=== PATIENT | male | born 1955 | race Caucasian/White ===

== ENCOUNTER 2017-11-19 16:22 | Inpatient (IN) | payer OTHER ==
[2017-11-19 16:56] LABS: ADD MAN DIFF? NO
[2017-11-19 17:00] LABS: WHITE BLOOD COUNT 9.4 10^3/ul (4.8-10.8)
[2017-11-19 17:00] LABS: BASOPHILS % 0.1 % (0.0-2.0); EOSINOPHILS # 0.4 10^3/ul (0.0-0.5); EOSINOPHILS % 3.7 % (0.0-7.0); HEMATOCRIT 32.4 % (42.0-52.0); HEMOGLOBIN 10.3 g/dl (14.0-18.0); LYMPHOCYTES # 1.6 10^3/ul (0.8-2.9); MEAN CORPUSCULAR HEMOGLOBIN 26.6 pg (29.0-33.0); MEAN CORPUSCULAR HGB CONC 31.8 g/dl (32.0-37.0); MEAN CORPUSCULAR VOLUME 83.7 fl (82.0-101.0); MEAN PLATELET VOLUME 8.8 fl (7.4-10.4); MONOCYTE # 0.6 10^3/ul (0.3-0.9); MONOCYTES % 6.3 % (0.0-11.0); NEUTROPHIL # 6.8 10^3/ul (1.6-7.5); NEUTROPHILS % 72.2 % (39.0-77.0); PLATELET COUNT 273 10^3/UL (140-415); RED BLOOD COUNT 3.87 10^6/ul (4.70-6.10)
[2017-11-19] MEDS: CEFEPIME 2GM/50 ML (PMX) 50 ML IVPB (17:14)
[2017-11-19] MEDS: SODIUM CHLORIDE 0.9% 1L BAG IV* (17:14)
[2017-11-19 17:17] LABS: INR 0.87; PROTIME 11.9 Sec (11.9-14.9); PT RATIO 0.9
[2017-11-19 17:19] LABS: PARTIAL THROMBOPLASTIN TIME 37.9 Sec (25.0-35.0)
[2017-11-19 17:25] LABS: ADD UMIC YES; UR AMORPHOUS CRYSTAL MANY /HPF (NONE SEEN); UR ASCORBIC ACID 40 mg/dL (NEGATIVE); UR BACTERIA FEW /HPF (NONE SEEN); UR BILIRUBIN (Dip) NEGATIVE (NEGATIVE); UR BLOOD (Dip) 3+ mg/dL (NEGATIVE); UR CLARITY TURBID (CLEAR); UR COLOR YELLOW (YELLOW); UR GLUCOSE (Dip) NEGATIVE (NEGATIVE); UR KETONES (Dip) NEGATIVE (NEGATIVE); UR LEUKOCYTE ESTERASE (Dip) NEGATIVE Leu/ul (NEGATIVE); UR MUCUS FEW /HPF (NONE SEEN); UR NITRITE (Dip) NEGATIVE (NEGATIVE); UR RBC > 182 /HPF (0-5); UR SPECIFIC GRAVITY (Dip) 1.013 (1.003-1.030); UR TOTAL PROTEIN (Dip) 1+ mg/dl (NEGATIVE); UR UROBILINOGEN (Dip) NEGATIVE (NEGATIVE); UR WBC 29 /HPF (0-5)
[2017-11-19 17:26] LABS: LACTIC ACID 1.5 mmol/L (0.5-2.0)
[2017-11-19 17:28] LABS: ALANINE AMINOTRANSFERASE 32 IU/L (13-69); ALBUMIN 3.3 g/dl (3.3-4.9); ALBUMIN/GLOBULIN RATIO 0.89; ALKALINE PHOSPHATASE 73 IU/L (42-121); ANION GAP 10 (8-16); ASPARTATE AMINO TRANSFERASE 26 IU/L (15-46); BILIRUBIN,INDIRECT 0.4 mg/dl (0-1.1); BILIRUBIN,TOTAL 0.4 mg/dl (0.2-1.3); BLOOD UREA NITROGEN 18 mg/dl (7-20); CALCIUM 9.2 mg/dl (8.4-10.2); CARBON DIOXIDE 35 mmol/L (21-31); CHLORIDE 93 mmol/L (97-110); CREATININE 0.53 mg/dl (0.61-1.24); GLUCOSE 132 mg/dl (70-220); SODIUM 134 mmol/L (135-144)
[2017-11-19 17:38] LABS: TROPONIN-I < 0.010 ng/ml (0.000-0.120)
[2017-11-19] MEDS: morphine 4 MG/ML VIAL IV (17:52)
[2017-11-19] MEDS ORDERED: NACL 0.9% 3 ML SYG IV (18:00)
[2017-11-19] MEDS ORDERED: VANCOMYCIN IV PER PHARMACY XX (18:00)
[2017-11-19] MEDS: morphine 2 MG INJ IV (19:33)
[2017-11-19] MEDS: VANCOMYCIN 1 GM (PMX) 250 ML IVPB (19:33)
[2017-11-19] MEDS: ONDANSETRON 4 MG INJ IV (19:33)
[2017-11-19] MEDS: HYDROCODONE/APAP (5/325) TAB PO (19:51)
[2017-11-19] MEDS: DOCUSATE SODIUM 10 MG/ML (10ML CUP) GTB (19:59)
[2017-11-19 20:39] LABS: LACTIC ACID 0.8 mmol/L (0.5-2.0)
[2017-11-19] MEDS: BUDESONIDE (NEB) 0.5MG/2ML AMP HHN (20:43)
[2017-11-19] MEDS: ALBUTEROL/IPRATROPIUM (NEB) 3 ML AMP HHN (20:43)
[2017-11-19] MEDS: ACETAMINOPHEN 325 MG TAB PO (21:05)
[2017-11-19] MEDS: FAMOTIDINE 20 MG INJ IV (21:09)
[2017-11-19] MEDS: SOD CHLORIDE 0.9% 1,000 ML IV (21:09)
[2017-11-19] MEDS ORDERED: HEPARIN 5,000 UNIT/0.5 ML VIAL SC (22:00)
[2017-11-20 00:17] LABS: LACTIC ACID 1.2 mmol/L (0.5-2.0)
[2017-11-20] MEDS: LORAZEPAM 0.5 MG TAB PO ×2 (00:31→21:34)
[2017-11-20] MEDS: HYDROCODONE/APAP (5/325) TAB PO ×3 (01:40→21:35)
[2017-11-20] MEDS: VANCOMYCIN 1 GM 250 ML IVPB ×2 (05:15→16:42)
[2017-11-20 05:46] LABS: ADD MAN DIFF? NO
[2017-11-20 05:58] LABS: BASOPHILS % 0.2 % (0.0-2.0); EOSINOPHILS # 0.4 10^3/ul (0.0-0.5); EOSINOPHILS % 7.1 % (0.0-7.0); HEMATOCRIT 29.2 % (42.0-52.0); HEMOGLOBIN 9.3 g/dl (14.0-18.0); LYMPHOCYTES # 0.9 10^3/ul (0.8-2.9); LYMPHOCYTES % 17.7 % (15.0-51.0); MEAN CORPUSCULAR HEMOGLOBIN 26.9 pg (29.0-33.0); MEAN CORPUSCULAR HGB CONC 31.8 g/dl (32.0-37.0); MEAN CORPUSCULAR VOLUME 84.4 fl (82.0-101.0); MEAN PLATELET VOLUME 9.2 fl (7.4-10.4); MONOCYTE # 0.5 10^3/ul (0.3-0.9); MONOCYTES % 9.6 % (0.0-11.0); NEUTROPHIL # 3.2 10^3/ul (1.6-7.5); NEUTROPHILS % 64.8 % (39.0-77.0); PLATELET COUNT 252 10^3/UL (140-415); RED BLOOD COUNT 3.46 10^6/ul (4.70-6.10); RED CELL DISTRIBUTION WIDTH 15.9 % (11.5-14.5)
[2017-11-20 05:58] LABS: WHITE BLOOD COUNT 4.9 10^3/ul (4.8-10.8)
[2017-11-20] MEDS: PIPER-TAZO 3.375 GM IV (PMX) 100 ML IVPB ×4 (06:03→23:33)
[2017-11-20 06:42] LABS: ALANINE AMINOTRANSFERASE 32 IU/L (13-69); ALBUMIN 2.9 g/dl (3.3-4.9); ALKALINE PHOSPHATASE 72 IU/L (42-121); ANION GAP 9 (8-16); ASPARTATE AMINO TRANSFERASE 30 IU/L (15-46); BILIRUBIN,INDIRECT 0.3 mg/dl (0-1.1); BILIRUBIN,TOTAL 0.3 mg/dl (0.2-1.3); BLOOD UREA NITROGEN 14 mg/dl (7-20); CALCIUM 8.8 mg/dl (8.4-10.2); CARBON DIOXIDE 31 mmol/L (21-31); CHLORIDE 100 mmol/L (97-110); CHOL/HDL RATIO 4.8 RATIO; CHOLESTEROL 83 mg/dl (100-200); CREATININE 0.44 mg/dl (0.61-1.24); GLUCOSE 140 mg/dl (70-220); HDL CHOLESTEROL 17 mg/dl (30-78); LDL CHOLESTEROL,CALCULATED 47 mg/dl; POTASSIUM 4.4 mmol/L (3.5-5.1); SODIUM 136 mmol/L (135-144); TOTAL PROTEIN 6.1 g/dl (6.1-8.1); TRIGLYCERIDES 96 mg/dl (0-149)
[2017-11-20] MEDS: FAMOTIDINE 20 MG INJ IV ×2 (09:04→21:34)
[2017-11-20] MEDS: DOCUSATE SODIUM 10 MG/ML (10ML CUP) GTB ×2 (09:04→22:01)
[2017-11-20] MEDS: BUDESONIDE (NEB) 0.5MG/2ML AMP HHN ×2 (09:25→21:07)
[2017-11-20] MEDS: ALBUTEROL/IPRATROPIUM (NEB) 3 ML AMP HHN ×3 (09:26→21:07)
[2017-11-20] MEDS: SOD CHLORIDE 0.9% 1,000 ML IV (13:45)
[2017-11-20] MEDS: morphine 2 MG INJ IV (15:26)
[2017-11-20] MEDS: DOCUSATE SODIUM 100 MG CAP PO (21:34)
[2017-11-20] MEDS: MAGNESIUM HYDROXIDE 30ML CUP PO (21:34)
[2017-11-21 04:17] LABS: WHITE BLOOD COUNT 5.2 10^3/ul (4.8-10.8)
[2017-11-21 04:17] LABS: ADD MAN DIFF? NO; BASOPHILS % 0.2 % (0.0-2.0); EOSINOPHILS # 0.3 10^3/ul (0.0-0.5); HEMATOCRIT 29.5 % (42.0-52.0); HEMOGLOBIN 9.5 g/dl (14.0-18.0); LYMPHOCYTES # 1.7 10^3/ul (0.8-2.9); LYMPHOCYTES % 32.4 % (15.0-51.0); MEAN CORPUSCULAR HEMOGLOBIN 27.4 pg (29.0-33.0); MEAN CORPUSCULAR HGB CONC 32.2 g/dl (32.0-37.0); MEAN PLATELET VOLUME 8.5 fl (7.4-10.4); MONOCYTE # 0.5 10^3/ul (0.3-0.9); MONOCYTES % 10.1 % (0.0-11.0); NEUTROPHIL # 2.6 10^3/ul (1.6-7.5); NEUTROPHILS % 50.9 % (39.0-77.0); PLATELET COUNT 281 10^3/UL (140-415); RED BLOOD COUNT 3.47 10^6/ul (4.70-6.10); RED CELL DISTRIBUTION WIDTH 15.5 % (11.5-14.5)
[2017-11-21 04:36] LABS: ANION GAP 11 (8-16); BLOOD UREA NITROGEN 13 mg/dl (7-20); CALCIUM 8.9 mg/dl (8.4-10.2); CARBON DIOXIDE 29 mmol/L (21-31); CHLORIDE 100 mmol/L (97-110); CREATININE 0.54 mg/dl (0.61-1.24); GLUCOSE 140 mg/dl (70-220); POTASSIUM 4.2 mmol/L (3.5-5.1); SODIUM 136 mmol/L (135-144)
[2017-11-21 04:48] LABS: VANCOMYCIN,TROUGH 8.2 ug/ml (10.0-20.0)
[2017-11-21] MEDS: PIPER-TAZO 3.375 GM IV (PMX) 100 ML IVPB ×4 (05:02→23:51)
[2017-11-21] MEDS: VANCOMYCIN 1 GM 250 ML IVPB (05:02)
[2017-11-21] MEDS: LORAZEPAM 0.5 MG TAB PO ×2 (05:31→21:26)
[2017-11-21] MEDS: HYDROCODONE/APAP (5/325) TAB PO ×2 (05:31→17:29)
[2017-11-21] MEDS: ALBUTEROL/IPRATROPIUM (NEB) 3 ML AMP HHN ×3 (07:40→20:15)
[2017-11-21] MEDS: DOCUSATE SODIUM 10 MG/ML (10ML CUP) GTB ×2 (08:21→20:05)
[2017-11-21] MEDS: FAMOTIDINE 20 MG INJ IV ×2 (08:21→20:06)
[2017-11-21] MEDS: ENOXAPARIN 30 MG/0.3 ML SYG SC (08:26)
[2017-11-21] MEDS: SOD CHLORIDE 0.9% 1,000 ML IV ×2 (09:13→11:13)
[2017-11-21] MEDS: BUDESONIDE (NEB) 0.5MG/2ML AMP HHN ×2 (09:22→20:15)
[2017-11-21] MEDS: VANCOMYCIN 1.5 GM in SOD CHLORIDE 0.9% 250 ML IVPB (18:43)
[2017-11-22] MEDS: HYDROCODONE/APAP (5/325) TAB PO ×4 (02:46→23:06)
[2017-11-22] MEDS: PIPER-TAZO 3.375 GM IV (PMX) 100 ML IVPB ×4 (05:06→23:03)
[2017-11-22] MEDS: LORAZEPAM 0.5 MG TAB PO ×2 (05:06→15:18)
[2017-11-22] MEDS: VANCOMYCIN 1.5 GM in SOD CHLORIDE 0.9% 250 ML IVPB ×2 (05:06→16:18)
[2017-11-22] MEDS: SOD CHLORIDE 0.9% 1,000 ML IV (05:10)
[2017-11-22 07:34] LABS: ADD MAN DIFF? NO
[2017-11-22] MEDS: ALBUTEROL/IPRATROPIUM (NEB) 3 ML AMP HHN ×3 (07:43→19:55)
[2017-11-22 07:44] LABS: BASOPHILS % 0.4 % (0.0-2.0); EOSINOPHILS # 0.3 10^3/ul (0.0-0.5); EOSINOPHILS % 3.6 % (0.0-7.0); HEMATOCRIT 31.5 % (42.0-52.0); LYMPHOCYTES # 2.1 10^3/ul (0.8-2.9); LYMPHOCYTES % 30.2 % (15.0-51.0); MEAN CORPUSCULAR HGB CONC 31.7 g/dl (32.0-37.0); MEAN CORPUSCULAR VOLUME 84.9 fl (82.0-101.0); MONOCYTE # 0.6 10^3/ul (0.3-0.9); MONOCYTES % 8.8 % (0.0-11.0); NEUTROPHIL # 3.9 10^3/ul (1.6-7.5); NEUTROPHILS % 54.9 % (39.0-77.0); PLATELET COUNT 298 10^3/UL (140-415); RED BLOOD COUNT 3.71 10^6/ul (4.70-6.10); RED CELL DISTRIBUTION WIDTH 15.1 % (11.5-14.5)
[2017-11-22 07:59] LABS: ANION GAP 11 (8-16); BLOOD UREA NITROGEN 14 mg/dl (7-20); CALCIUM 9.1 mg/dl (8.4-10.2); CARBON DIOXIDE 29 mmol/L (21-31); CHLORIDE 102 mmol/L (97-110); CREATININE 0.52 mg/dl (0.61-1.24); GLUCOSE 132 mg/dl (70-220); POTASSIUM 3.9 mmol/L (3.5-5.1); SODIUM 138 mmol/L (135-144)
[2017-11-22] MEDS: FAMOTIDINE 20 MG INJ IV ×2 (08:46→20:50)
[2017-11-22] MEDS: DOCUSATE SODIUM 10 MG/ML (10ML CUP) GTB ×2 (08:46→20:50)
[2017-11-22] MEDS: ENOXAPARIN 30 MG/0.3 ML SYG SC (08:49)
[2017-11-22] MEDS: BUDESONIDE (NEB) 0.5MG/2ML AMP HHN ×2 (09:35→19:56)
[2017-11-22] MEDS: HYDROCHLOROTHIAZIDE 25 MG TAB PO (18:12)
[2017-11-22 18:32] LABS: ADD UMIC NO; UR ASCORBIC ACID 20 mg/dL (NEGATIVE); UR BILIRUBIN (Dip) NEGATIVE (NEGATIVE); UR BLOOD (Dip) NEGATIVE (NEGATIVE); UR CLARITY CLEAR (CLEAR); UR COLOR STRAW (YELLOW); UR GLUCOSE (Dip) NEGATIVE (NEGATIVE); UR KETONES (Dip) NEGATIVE (NEGATIVE); UR LEUKOCYTE ESTERASE (Dip) NEGATIVE Leu/ul (NEGATIVE); UR NITRITE (Dip) NEGATIVE (NEGATIVE); UR SPECIFIC GRAVITY (Dip) 1.015 (1.003-1.030); UR TOTAL PROTEIN (Dip) NEGATIVE (NEGATIVE); UR UROBILINOGEN (Dip) NEGATIVE (NEGATIVE)
[2017-11-22] MEDS: MUPIROCIN 2% 22 GM OINT TOP (23:02)
[2017-11-22] MEDS: TOBRAMYCIN/0.25NS 300 MG/5 ML INHAL NEB (23:22)
[2017-11-23] MEDS: SOD CHLORIDE 0.9% 1,000 ML IV ×4 (00:15→20:47)
[2017-11-23] MEDS: ACETAMINOPHEN 325 MG TAB PO (03:50)
[2017-11-23] MEDS: LORAZEPAM 0.5 MG TAB PO (03:50)
[2017-11-23 04:27] LABS: ADD MAN DIFF? NO
[2017-11-23 04:31] LABS: WHITE BLOOD COUNT 6.9 10^3/ul (4.8-10.8)
[2017-11-23 04:31] LABS: BASOPHILS % 0.3 % (0.0-2.0); EOSINOPHILS # 0.3 10^3/ul (0.0-0.5); EOSINOPHILS % 4.2 % (0.0-7.0); HEMATOCRIT 30.7 % (42.0-52.0); HEMOGLOBIN 9.9 g/dl (14.0-18.0); LYMPHOCYTES # 2.3 10^3/ul (0.8-2.9); LYMPHOCYTES % 33.7 % (15.0-51.0); MEAN CORPUSCULAR HEMOGLOBIN 26.9 pg (29.0-33.0); MEAN CORPUSCULAR HGB CONC 32.2 g/dl (32.0-37.0); MEAN CORPUSCULAR VOLUME 83.4 fl (82.0-101.0); MEAN PLATELET VOLUME 8.8 fl (7.4-10.4); MONOCYTE # 0.7 10^3/ul (0.3-0.9); MONOCYTES % 10.4 % (0.0-11.0); NEUTROPHIL # 3.3 10^3/ul (1.6-7.5); NEUTROPHILS % 47.9 % (39.0-77.0); PLATELET COUNT 307 10^3/UL (140-415); RED BLOOD COUNT 3.68 10^6/ul (4.70-6.10); RED CELL DISTRIBUTION WIDTH 15.3 % (11.5-14.5)
[2017-11-23 04:59] LABS: ANION GAP 11 (8-16); BLOOD UREA NITROGEN 15 mg/dl (7-20); CALCIUM 9.3 mg/dl (8.4-10.2); CARBON DIOXIDE 29 mmol/L (21-31); CHLORIDE 100 mmol/L (97-110); CREATININE 0.55 mg/dl (0.61-1.24); GLUCOSE 132 mg/dl (70-220); POTASSIUM 4.1 mmol/L (3.5-5.1); SODIUM 136 mmol/L (135-144)
[2017-11-23 05:05] LABS: VANCOMYCIN,TROUGH 19.5 ug/ml (10.0-20.0)
[2017-11-23] MEDS: PIPER-TAZO 3.375 GM IV (PMX) 100 ML IVPB ×4 (05:16→23:19)
[2017-11-23] MEDS: ALBUTEROL/IPRATROPIUM (NEB) 3 ML AMP HHN ×3 (08:15→20:27)
[2017-11-23] MEDS: TOBRAMYCIN/0.25NS 300 MG/5 ML INHAL NEB ×2 (08:15→20:00)
[2017-11-23] MEDS: BUDESONIDE (NEB) 0.5MG/2ML AMP HHN ×2 (08:15→20:27)
[2017-11-23] MEDS: DOCUSATE SODIUM 10 MG/ML (10ML CUP) GTB ×2 (09:58→20:46)
[2017-11-23] MEDS: VANCOMYCIN 1.25 GM in SOD CHLORIDE 0.9% 250 ML IVPB ×2 (09:58→19:40)
[2017-11-23] MEDS: HYDROCHLOROTHIAZIDE 25 MG TAB PO (09:59)
[2017-11-23] MEDS: HYDROCODONE/APAP (5/325) TAB PO ×3 (09:59→23:18)
[2017-11-23] MEDS: MUPIROCIN 2% 22 GM OINT TOP ×2 (10:00→20:46)
[2017-11-23] MEDS: FAMOTIDINE 20 MG INJ IV ×2 (10:00→20:46)
[2017-11-23] MEDS: ENOXAPARIN 30 MG/0.3 ML SYG SC (10:19)
[2017-11-24] MEDS: LORAZEPAM 0.5 MG TAB PO ×2 (02:39→22:59)
[2017-11-24] MEDS: ACETAMINOPHEN 325 MG TAB PO ×2 (02:39→08:40)
[2017-11-24] MEDS: PIPER-TAZO 3.375 GM IV (PMX) 100 ML IVPB ×4 (05:23→22:59)
[2017-11-24] MEDS: HYDROCODONE/APAP (5/325) TAB PO ×3 (06:02→20:52)
[2017-11-24] MEDS: LISINOPRIL 10 MG TAB PO (08:21)
[2017-11-24] MEDS: VANCOMYCIN 1.25 GM in SOD CHLORIDE 0.9% 250 ML IVPB ×2 (08:21→20:52)
[2017-11-24] MEDS: HYDROCHLOROTHIAZIDE 25 MG TAB PO (08:21)
[2017-11-24] MEDS: DOCUSATE SODIUM 10 MG/ML (10ML CUP) GTB ×2 (08:21→20:52)
[2017-11-24] MEDS: FAMOTIDINE 20 MG INJ IV ×2 (08:22→20:52)
[2017-11-24] MEDS: MUPIROCIN 2% 22 GM OINT TOP ×2 (08:22→20:52)
[2017-11-24] MEDS: ENOXAPARIN 30 MG/0.3 ML SYG SC (08:36)
[2017-11-24] MEDS: ALBUTEROL/IPRATROPIUM (NEB) 3 ML AMP HHN ×3 (08:57→20:32)
[2017-11-24] MEDS: BUDESONIDE (NEB) 0.5MG/2ML AMP HHN ×2 (08:57→20:32)
[2017-11-24] MEDS: TOBRAMYCIN/0.25NS 300 MG/5 ML INHAL NEB ×2 (08:57→20:34)
[2017-11-24 09:44] LABS: ANION GAP 11 (8-16); BLOOD UREA NITROGEN 16 mg/dl (7-20); CALCIUM 9.1 mg/dl (8.4-10.2); CARBON DIOXIDE 28 mmol/L (21-31); CHLORIDE 101 mmol/L (97-110); CREATININE 0.57 mg/dl (0.61-1.24); GLUCOSE 133 mg/dl (70-220); POTASSIUM 4.1 mmol/L (3.5-5.1); SODIUM 136 mmol/L (135-144)
[2017-11-24 19:50] LABS: VANCOMYCIN,TROUGH 16.4 ug/ml (10.0-20.0)
[2017-11-25] MEDS: HYDROCODONE/APAP (5/325) TAB PO ×3 (03:09→18:14)
[2017-11-25] MEDS: PIPER-TAZO 3.375 GM IV (PMX) 100 ML IVPB ×3 (06:12→17:54)
[2017-11-25] MEDS: ACETAMINOPHEN 325 MG TAB PO (06:26)
[2017-11-25 06:35] LABS: ADD MAN DIFF? NO
[2017-11-25 06:41] LABS: WHITE BLOOD COUNT 7.8 10^3/ul (4.8-10.8)
[2017-11-25 06:41] LABS: BASOPHILS % 0.3 % (0.0-2.0); EOSINOPHILS # 0.2 10^3/ul (0.0-0.5); EOSINOPHILS % 2.7 % (0.0-7.0); HEMATOCRIT 31.3 % (42.0-52.0); HEMOGLOBIN 10.2 g/dl (14.0-18.0); LYMPHOCYTES # 2.4 10^3/ul (0.8-2.9); LYMPHOCYTES % 30.1 % (15.0-51.0); MEAN CORPUSCULAR HEMOGLOBIN 27.2 pg (29.0-33.0); MEAN CORPUSCULAR HGB CONC 32.6 g/dl (32.0-37.0); MEAN CORPUSCULAR VOLUME 83.5 fl (82.0-101.0); MONOCYTE # 0.6 10^3/ul (0.3-0.9); MONOCYTES % 8.2 % (0.0-11.0); NEUTROPHIL # 4.5 10^3/ul (1.6-7.5); NEUTROPHILS % 57.2 % (39.0-77.0); PLATELET COUNT 347 10^3/UL (140-415); RED BLOOD COUNT 3.75 10^6/ul (4.70-6.10); RED CELL DISTRIBUTION WIDTH 15.4 % (11.5-14.5)
[2017-11-25 07:04] LABS: INR 0.93; PROTIME 12.6 Sec (11.9-14.9)
[2017-11-25 07:05] LABS: PARTIAL THROMBOPLASTIN TIME 35.4 Sec (25.0-35.0)
[2017-11-25 07:21] LABS: ALANINE AMINOTRANSFERASE 28 IU/L (13-69); ALBUMIN 3.2 g/dl (3.3-4.9); ALBUMIN/GLOBULIN RATIO 0.91; ALKALINE PHOSPHATASE 58 IU/L (42-121); ANION GAP 11 (8-16); ASPARTATE AMINO TRANSFERASE 19 IU/L (15-46); BILIRUBIN,INDIRECT 0.2 mg/dl (0-1.1); BILIRUBIN,TOTAL 0.2 mg/dl (0.2-1.3); BLOOD UREA NITROGEN 17 mg/dl (7-20); CALCIUM 9.3 mg/dl (8.4-10.2); CARBON DIOXIDE 29 mmol/L (21-31); CHLORIDE 100 mmol/L (97-110); CREATININE 0.59 mg/dl (0.61-1.24); GLUCOSE 131 mg/dl (70-220); POTASSIUM 4.1 mmol/L (3.5-5.1); SODIUM 136 mmol/L (135-144); TOTAL PROTEIN 6.7 g/dl (6.1-8.1)
[2017-11-25] MEDS: ALBUTEROL/IPRATROPIUM (NEB) 3 ML AMP HHN ×3 (08:05→20:25)
[2017-11-25] MEDS: VANCOMYCIN 1.25 GM in SOD CHLORIDE 0.9% 250 ML IVPB (08:41)
[2017-11-25] MEDS: BUDESONIDE (NEB) 0.5MG/2ML AMP HHN ×2 (09:46→20:34)
[2017-11-25] MEDS: TOBRAMYCIN/0.25NS 300 MG/5 ML INHAL NEB ×2 (09:58→20:43)
[2017-11-25] MEDS: LISINOPRIL 5 MG TAB PO (10:29)
[2017-11-25] MEDS: FAMOTIDINE 20 MG INJ IV ×2 (10:29→21:44)
[2017-11-25] MEDS: DOCUSATE SODIUM 10 MG/ML (10ML CUP) GTB ×2 (10:29→21:44)
[2017-11-25] MEDS: HYDROCHLOROTHIAZIDE 25 MG TAB PO (10:29)
[2017-11-25] MEDS: MUPIROCIN 2% 22 GM OINT TOP ×2 (10:30→21:45)
[2017-11-25] MEDS: ENOXAPARIN 30 MG/0.3 ML SYG SC (10:54)
[2017-11-25] MEDS: LORAZEPAM 0.5 MG TAB PO ×2 (12:47→21:57)
[2017-11-25] MEDS: VANCOMYCIN 1 GM 250 ML IVPB (21:45)
[2017-11-26] MEDS: PIPER-TAZO 3.375 GM IV (PMX) 100 ML IVPB ×5 (00:41→23:39)
[2017-11-26] MEDS: morphine LIQ (10 MG/5 ML) CUP PO ×2 (01:08→01:26)
[2017-11-26] MEDS: HYDROCODONE/APAP (5/325) TAB PO ×4 (01:27→23:40)
[2017-11-26] MEDS: ALBUTEROL/IPRATROPIUM (NEB) 3 ML AMP HHN ×4 (07:52→23:54)
[2017-11-26 08:43] LABS: ADD MAN DIFF? NO
[2017-11-26] MEDS: VANCOMYCIN 1 GM 250 ML IVPB ×2 (08:43→21:47)
[2017-11-26 08:55] LABS: WHITE BLOOD COUNT 8.4 10^3/ul (4.8-10.8)
[2017-11-26 08:55] LABS: BASOPHILS % 0.1 % (0.0-2.0); EOSINOPHILS # 0.2 10^3/ul (0.0-0.5); EOSINOPHILS % 2.5 % (0.0-7.0); HEMATOCRIT 32.1 % (42.0-52.0); HEMOGLOBIN 10.3 g/dl (14.0-18.0); LYMPHOCYTES # 2.7 10^3/ul (0.8-2.9); LYMPHOCYTES % 31.9 % (15.0-51.0); MEAN CORPUSCULAR HEMOGLOBIN 26.8 pg (29.0-33.0); MEAN CORPUSCULAR HGB CONC 32.1 g/dl (32.0-37.0); MEAN CORPUSCULAR VOLUME 83.6 fl (82.0-101.0); MONOCYTE # 0.7 10^3/ul (0.3-0.9); MONOCYTES % 7.7 % (0.0-11.0); NEUTROPHIL # 4.8 10^3/ul (1.6-7.5); NEUTROPHILS % 56.5 % (39.0-77.0); PLATELET COUNT 340 10^3/UL (140-415); RED BLOOD COUNT 3.84 10^6/ul (4.70-6.10); RED CELL DISTRIBUTION WIDTH 15.9 % (11.5-14.5)
[2017-11-26] MEDS: TOBRAMYCIN/0.25NS 300 MG/5 ML INHAL NEB ×2 (09:00→19:35)
[2017-11-26] MEDS: MUPIROCIN 2% 22 GM OINT TOP ×2 (09:39→21:48)
[2017-11-26] MEDS: FAMOTIDINE 20 MG INJ IV ×2 (09:39→21:48)
[2017-11-26] MEDS: HYDROCHLOROTHIAZIDE 25 MG TAB PO (09:39)
[2017-11-26] MEDS: LISINOPRIL 5 MG TAB PO (09:39)
[2017-11-26] MEDS: DOCUSATE SODIUM 10 MG/ML (10ML CUP) GTB ×2 (09:39→21:47)
[2017-11-26] MEDS: ENOXAPARIN 30 MG/0.3 ML SYG SC (09:44)
[2017-11-26] MEDS: BUDESONIDE (NEB) 0.5MG/2ML AMP HHN ×2 (09:55→19:35)
[2017-11-26 10:14] LABS: ANION GAP 13 (8-16); BLOOD UREA NITROGEN 19 mg/dl (7-20); CALCIUM 9.2 mg/dl (8.4-10.2); CARBON DIOXIDE 28 mmol/L (21-31); CHLORIDE 100 mmol/L (97-110); CREATININE 0.66 mg/dl (0.61-1.24); GLUCOSE 125 mg/dl (70-220); MAGNESIUM 2.3 mg/dl (1.7-2.5); POTASSIUM 4.1 mmol/L (3.5-5.1); SODIUM 137 mmol/L (135-144)
[2017-11-26] MEDS: ACETAMINOPHEN 325 MG TAB PO (12:49)
[2017-11-26] MEDS: LORAZEPAM 0.5 MG TAB PO (12:54)
[2017-11-27] MEDS: ALBUTEROL/IPRATROPIUM (NEB) 3 ML AMP HHN ×4 (06:03→20:53)
[2017-11-27] MEDS: PIPER-TAZO 3.375 GM IV (PMX) 100 ML IVPB ×3 (06:25→18:02)
[2017-11-27 07:29] LABS: ADD MAN DIFF? NO
[2017-11-27 07:36] LABS: WHITE BLOOD COUNT 6.9 10^3/ul (4.8-10.8)
[2017-11-27 07:36] LABS: BASOPHILS % 0.3 % (0.0-2.0); EOSINOPHILS # 0.3 10^3/ul (0.0-0.5); EOSINOPHILS % 3.6 % (0.0-7.0); HEMATOCRIT 31.9 % (42.0-52.0); HEMOGLOBIN 10.4 g/dl (14.0-18.0); LYMPHOCYTES # 2.1 10^3/ul (0.8-2.9); LYMPHOCYTES % 30.7 % (15.0-51.0); MEAN CORPUSCULAR HEMOGLOBIN 27.2 pg (29.0-33.0); MEAN CORPUSCULAR HGB CONC 32.6 g/dl (32.0-37.0); MEAN CORPUSCULAR VOLUME 83.3 fl (82.0-101.0); MONOCYTE # 0.5 10^3/ul (0.3-0.9); MONOCYTES % 7.7 % (0.0-11.0); NEUTROPHIL # 3.9 10^3/ul (1.6-7.5); PLATELET COUNT 332 10^3/UL (140-415); RED BLOOD COUNT 3.83 10^6/ul (4.70-6.10); RED CELL DISTRIBUTION WIDTH 15.8 % (11.5-14.5)
[2017-11-27 07:57] LABS: ANION GAP 10 (8-16); BLOOD UREA NITROGEN 16 mg/dl (7-20); CALCIUM 9.2 mg/dl (8.4-10.2); CARBON DIOXIDE 30 mmol/L (21-31); CHLORIDE 100 mmol/L (97-110); CREATININE 0.57 mg/dl (0.61-1.24); GLUCOSE 129 mg/dl (70-220); POTASSIUM 3.8 mmol/L (3.5-5.1); SODIUM 136 mmol/L (135-144)
[2017-11-27] MEDS: BUDESONIDE (NEB) 0.5MG/2ML AMP HHN ×2 (08:16→20:53)
[2017-11-27] MEDS: TOBRAMYCIN/0.25NS 300 MG/5 ML INHAL NEB ×2 (08:16→21:00)
[2017-11-27] MEDS: DOCUSATE SODIUM 10 MG/ML (10ML CUP) GTB ×2 (09:05→20:38)
[2017-11-27] MEDS: VANCOMYCIN 1 GM 250 ML IVPB ×2 (09:05→20:38)
[2017-11-27] MEDS: LISINOPRIL 5 MG TAB PO (09:06)
[2017-11-27] MEDS: HYDROCHLOROTHIAZIDE 25 MG TAB PO (09:06)
[2017-11-27] MEDS: FAMOTIDINE 20 MG INJ IV ×2 (09:06→20:39)
[2017-11-27] MEDS: MUPIROCIN 2% 22 GM OINT TOP ×2 (09:12→20:39)
[2017-11-27] MEDS: HYDROCODONE/APAP (5/325) TAB PO ×2 (09:26→15:35)
[2017-11-27] MEDS: ENOXAPARIN 30 MG/0.3 ML SYG SC (10:08)
[2017-11-27 20:09] LABS: VANCOMYCIN,TROUGH 15.2 ug/ml (10.0-20.0)
[2017-11-27] MEDS: ACETAMINOPHEN 325 MG TAB PO (22:07)
[2017-11-27] MEDS: LORAZEPAM 0.5 MG TAB PO (22:07)
[2017-11-28] MEDS: PIPER-TAZO 3.375 GM IV (PMX) 100 ML IVPB ×4 (01:25→17:33)
[2017-11-28] MEDS: HYDROCODONE/APAP (5/325) TAB PO ×3 (04:37→17:39)
[2017-11-28] MEDS: ALBUTEROL/IPRATROPIUM (NEB) 3 ML AMP HHN ×3 (07:13→20:11)
[2017-11-28] MEDS: LISINOPRIL 5 MG TAB PO (08:07)
[2017-11-28] MEDS: HYDROCHLOROTHIAZIDE 25 MG TAB PO (08:08)
[2017-11-28] MEDS: BUDESONIDE (NEB) 0.5MG/2ML AMP HHN ×2 (08:23→20:11)
[2017-11-28] MEDS: TOBRAMYCIN/0.25NS 300 MG/5 ML INHAL NEB ×2 (08:34→20:11)
[2017-11-28] MEDS: FAMOTIDINE 20 MG INJ IV ×2 (08:42→21:11)
[2017-11-28] MEDS: DOCUSATE SODIUM 10 MG/ML (10ML CUP) GTB ×2 (08:42→21:11)
[2017-11-28] MEDS: VANCOMYCIN 1 GM 250 ML IVPB ×2 (08:43→21:11)
[2017-11-28] MEDS: MUPIROCIN 2% 22 GM OINT TOP ×2 (08:43→21:12)
[2017-11-28 08:44] LABS: ADD MAN DIFF? NO
[2017-11-28 08:49] LABS: BASOPHILS % 0.2 % (0.0-2.0); EOSINOPHILS # 0.2 10^3/ul (0.0-0.5); EOSINOPHILS % 2.1 % (0.0-7.0); HEMOGLOBIN 10.2 g/dl (14.0-18.0); LYMPHOCYTES # 2.7 10^3/ul (0.8-2.9); MEAN CORPUSCULAR HEMOGLOBIN 27.1 pg (29.0-33.0); MEAN CORPUSCULAR HGB CONC 32.9 g/dl (32.0-37.0); MEAN CORPUSCULAR VOLUME 82.2 fl (82.0-101.0); MEAN PLATELET VOLUME 9.3 fl (7.4-10.4); MONOCYTE # 0.7 10^3/ul (0.3-0.9); MONOCYTES % 7.2 % (0.0-11.0); NEUTROPHIL # 5.4 10^3/ul (1.6-7.5); NEUTROPHILS % 60.1 % (39.0-77.0); PLATELET COUNT 333 10^3/UL (140-415); RED BLOOD COUNT 3.77 10^6/ul (4.70-6.10)
[2017-11-28] MEDS: ENOXAPARIN 30 MG/0.3 ML SYG SC (08:59)
[2017-11-28 09:11] LABS: ANION GAP 11 (8-16); BLOOD UREA NITROGEN 19 mg/dl (7-20); CALCIUM 9.2 mg/dl (8.4-10.2); CARBON DIOXIDE 28 mmol/L (21-31); CHLORIDE 100 mmol/L (97-110); CREATININE 0.69 mg/dl (0.61-1.24); GLUCOSE 128 mg/dl (70-220); SODIUM 135 mmol/L (135-144)
[2017-11-28] MEDS: GABAPENTIN 100 MG CAP PO ×2 (13:31→21:11)
[2017-11-28] MEDS: LORAZEPAM 0.5 MG TAB PO (21:11)
[2017-11-28] MEDS: morphine LIQ (10 MG/5 ML) CUP PO (21:14)
[2017-11-29] MEDS: PIPER-TAZO 3.375 GM IV (PMX) 100 ML IVPB ×4 (00:16→17:33)
[2017-11-29] MEDS: HYDROCODONE/APAP (5/325) TAB PO ×3 (04:23→21:30)
[2017-11-29] MEDS: LORAZEPAM 0.5 MG TAB PO (06:33)
[2017-11-29] MEDS: GABAPENTIN 100 MG CAP PO ×3 (06:33→21:26)
[2017-11-29] MEDS: ALBUTEROL/IPRATROPIUM (NEB) 3 ML AMP HHN ×3 (08:26→19:27)
[2017-11-29] MEDS: BUDESONIDE (NEB) 0.5MG/2ML AMP HHN ×2 (08:31→19:27)
[2017-11-29] MEDS: TOBRAMYCIN/0.25NS 300 MG/5 ML INHAL NEB ×2 (08:32→19:27)
[2017-11-29] MEDS: VANCOMYCIN 1 GM 250 ML IVPB ×2 (09:09→21:26)
[2017-11-29] MEDS: MUPIROCIN 2% 22 GM OINT TOP (09:09)
[2017-11-29] MEDS: DOCUSATE SODIUM 10 MG/ML (10ML CUP) GTB ×2 (09:09→21:26)
[2017-11-29] MEDS: LISINOPRIL 5 MG TAB PO (09:10)
[2017-11-29] MEDS: FAMOTIDINE 20 MG INJ IV ×2 (09:10→21:26)
[2017-11-29] MEDS: HYDROCHLOROTHIAZIDE 25 MG TAB PO (09:10)
[2017-11-29] MEDS: ENOXAPARIN 30 MG/0.3 ML SYG SC (09:16)
[2017-11-29] MEDS: MAGNESIUM HYDROXIDE 30ML CUP PO (21:26)
[2017-11-30] MEDS: HYDROCODONE/APAP (5/325) TAB PO ×4 (04:23→22:29)
[2017-11-30] MEDS: GABAPENTIN 100 MG CAP PO ×3 (06:27→22:29)
[2017-11-30] MEDS: ALBUTEROL/IPRATROPIUM (NEB) 3 ML AMP HHN ×3 (07:59→19:19)
[2017-11-30] MEDS: LISINOPRIL 5 MG TAB PO (08:57)
[2017-11-30] MEDS: HYDROCHLOROTHIAZIDE 25 MG TAB PO (08:57)
[2017-11-30] MEDS: DOCUSATE SODIUM 10 MG/ML (10ML CUP) GTB ×2 (08:57→22:29)
[2017-11-30] MEDS: FAMOTIDINE 20 MG INJ IV ×2 (08:57→22:29)
[2017-11-30] MEDS: BUDESONIDE (NEB) 0.5MG/2ML AMP HHN ×2 (09:33→19:19)
[2017-11-30] MEDS: ENOXAPARIN 30 MG/0.3 ML SYG SC (09:43)
[2017-11-30] MEDS: MAGNESIUM HYDROXIDE 30ML CUP PO (16:37)
[2017-12-01] MEDS: HYDROCODONE/APAP (5/325) TAB PO ×3 (04:26→21:30)
[2017-12-01] MEDS: MAGNESIUM HYDROXIDE 30ML CUP PO (04:40)
[2017-12-01] MEDS: BISACODYL 10 MG SUPP PR (06:02)
[2017-12-01] MEDS: LORAZEPAM 0.5 MG TAB PO ×2 (06:27→22:43)
[2017-12-01] MEDS: ALBUTEROL/IPRATROPIUM (NEB) 3 ML AMP HHN ×3 (07:46→20:54)
[2017-12-01 08:31] LABS: ADD MAN DIFF? NO
[2017-12-01 08:41] LABS: BASOPHILS % 0.2 % (0.0-2.0); EOSINOPHILS # 0.3 10^3/ul (0.0-0.5); EOSINOPHILS % 3.5 % (0.0-7.0); IMMATURE GRANS #M 0.03 10^3/ul; IMMATURE GRANS % (M) 0.4 %; LYMPHOCYTES # 2.5 10^3/ul (0.8-2.9); LYMPHOCYTES % 29.4 % (15.0-51.0); MEAN CORPUSCULAR HEMOGLOBIN 27.1 pg (29.0-33.0); MEAN CORPUSCULAR HGB CONC 32.4 g/dl (32.0-37.0); MEAN CORPUSCULAR VOLUME 83.7 fl (82.0-101.0); MEAN PLATELET VOLUME 9.7 fl (7.4-10.4); MONOCYTE # 0.8 10^3/ul (0.3-0.9); MONOCYTES % 8.8 % (0.0-11.0); NEUTROPHIL # 4.9 10^3/ul (1.6-7.5); NEUTROPHILS % 57.7 % (39.0-77.0); PLATELET COUNT 347 10^3/UL (140-415); RED BLOOD COUNT 4.06 10^6/ul (4.70-6.10); RED CELL DISTRIBUTION WIDTH 16.7 % (11.5-14.5)
[2017-12-01 08:41] LABS: WHITE BLOOD COUNT 8.6 10^3/ul (4.8-10.8)
[2017-12-01 09:02] LABS: ANION GAP 14 (8-16); BLOOD UREA NITROGEN 24 mg/dl (7-20); CALCIUM 9.7 mg/dl (8.4-10.2); CARBON DIOXIDE 31 mmol/L (21-31); CHLORIDE 97 mmol/L (97-110); CREATININE 0.69 mg/dl (0.61-1.24); GLUCOSE 110 mg/dl (70-220); MAGNESIUM 2.6 mg/dl (1.7-2.5); POTASSIUM 4.3 mmol/L (3.5-5.1); SODIUM 138 mmol/L (135-144)
[2017-12-01] MEDS: DOCUSATE SODIUM 10 MG/ML (10ML CUP) GTB ×2 (09:05→21:21)
[2017-12-01] MEDS: FAMOTIDINE 20 MG INJ IV ×2 (09:06→21:21)
[2017-12-01] MEDS: GABAPENTIN 100 MG CAP PO ×3 (09:06→21:21)
[2017-12-01] MEDS: NA PHOSPHATE/BIPHOS 133 ML ENEMA PR (09:06)
[2017-12-01] MEDS: HYDROCHLOROTHIAZIDE 25 MG TAB PO (09:06)
[2017-12-01] MEDS: LISINOPRIL 5 MG TAB PO (09:07)
[2017-12-01] MEDS: ENOXAPARIN 30 MG/0.3 ML SYG SC (09:09)
[2017-12-01] MEDS: BUDESONIDE (NEB) 0.5MG/2ML AMP HHN ×2 (09:20→21:03)
[2017-12-02] MEDS: SOD CHLORIDE 0.9% 500 ML IV (05:01)
[2017-12-02] MEDS: HYDROCODONE/APAP (5/325) TAB PO ×4 (06:24→23:22)
[2017-12-02] MEDS: ALBUTEROL/IPRATROPIUM (NEB) 3 ML AMP HHN ×3 (08:51→19:48)
[2017-12-02] MEDS: BUDESONIDE (NEB) 0.5MG/2ML AMP HHN ×2 (08:51→19:48)
[2017-12-02] MEDS: HYDROCHLOROTHIAZIDE 25 MG TAB PO (09:00)
[2017-12-02] MEDS: LISINOPRIL 5 MG TAB PO (09:00)
[2017-12-02] MEDS: DOCUSATE SODIUM 10 MG/ML (10ML CUP) GTB ×2 (09:07→20:50)
[2017-12-02] MEDS: FAMOTIDINE 20 MG INJ IV ×2 (09:08→20:50)
[2017-12-02] MEDS: GABAPENTIN 100 MG CAP PO ×3 (09:08→20:50)
[2017-12-02] MEDS: ENOXAPARIN 30 MG/0.3 ML SYG SC (09:24)
[2017-12-03] MEDS: ZOLPIDEM 5 MG TAB PO (00:53)
[2017-12-03] MEDS: SOD CHLORIDE 0.9% 500 ML IV (02:26)
[2017-12-03] MEDS: ACETAMINOPHEN 325 MG TAB PO (05:45)
[2017-12-03 06:42] LABS: ADD MAN DIFF? NO
[2017-12-03 06:49] LABS: WHITE BLOOD COUNT 5.2 10^3/ul (4.8-10.8)
[2017-12-03 06:49] LABS: BASOPHILS % 0.4 % (0.0-2.0); EOSINOPHILS # 0.2 10^3/ul (0.0-0.5); EOSINOPHILS % 3.8 % (0.0-7.0); HEMATOCRIT 31.3 % (42.0-52.0); IMMATURE GRANS #M 0.03 10^3/ul; IMMATURE GRANS % (M) 0.6 %; LYMPHOCYTES % 38.1 % (15.0-51.0); MEAN CORPUSCULAR HEMOGLOBIN 26.7 pg (29.0-33.0); MEAN CORPUSCULAR HGB CONC 31.9 g/dl (32.0-37.0); MEAN CORPUSCULAR VOLUME 83.7 fl (82.0-101.0); MEAN PLATELET VOLUME 9.7 fl (7.4-10.4); MONOCYTE # 0.7 10^3/ul (0.3-0.9); MONOCYTES % 12.8 % (0.0-11.0); NEUTROPHIL # 2.3 10^3/ul (1.6-7.5); NEUTROPHILS % 44.3 % (39.0-77.0); PLATELET COUNT 280 10^3/UL (140-415); RED BLOOD COUNT 3.74 10^6/ul (4.70-6.10); RED CELL DISTRIBUTION WIDTH 16.4 % (11.5-14.5)
[2017-12-03 07:06] LABS: ANION GAP 12 (8-16); BLOOD UREA NITROGEN 22 mg/dl (7-20); CALCIUM 9.1 mg/dl (8.4-10.2); CARBON DIOXIDE 30 mmol/L (21-31); CHLORIDE 101 mmol/L (97-110); CREATININE 0.61 mg/dl (0.61-1.24); GLUCOSE 126 mg/dl (70-220); POTASSIUM 4.1 mmol/L (3.5-5.1); SODIUM 139 mmol/L (135-144)
[2017-12-03] MEDS: POLYETHYLENE GLYCOL 17 GM PACKET GTB (08:26)
[2017-12-03] MEDS: FAMOTIDINE 20 MG INJ IV ×2 (08:27→20:49)
[2017-12-03] MEDS: DOCUSATE SODIUM 10 MG/ML (10ML CUP) GTB ×2 (08:27→20:49)
[2017-12-03] MEDS: GABAPENTIN 100 MG CAP PO ×3 (08:27→20:49)
[2017-12-03] MEDS: ENOXAPARIN 30 MG/0.3 ML SYG SC (08:28)
[2017-12-03] MEDS: HYDROCODONE/APAP (5/325) TAB PO ×3 (08:53→20:55)
[2017-12-03] MEDS: ALBUTEROL/IPRATROPIUM (NEB) 3 ML AMP HHN ×3 (09:07→19:33)
[2017-12-03] MEDS: BUDESONIDE (NEB) 0.5MG/2ML AMP HHN ×2 (09:07→19:33)
[2017-12-04] MEDS: HYDROCODONE/APAP (5/325) TAB PO ×4 (04:56→22:01)
[2017-12-04] MEDS: ALBUTEROL/IPRATROPIUM (NEB) 3 ML AMP HHN ×3 (08:30→20:35)
[2017-12-04] MEDS: BUDESONIDE (NEB) 0.5MG/2ML AMP HHN ×2 (08:30→20:35)
[2017-12-04] MEDS: DOCUSATE SODIUM 10 MG/ML (10ML CUP) GTB ×2 (09:28→20:47)
[2017-12-04] MEDS: POLYETHYLENE GLYCOL 17 GM PACKET GTB (09:28)
[2017-12-04] MEDS: FAMOTIDINE 20 MG INJ IV (09:28)
[2017-12-04] MEDS: GABAPENTIN 100 MG CAP PO ×3 (09:29→20:47)
[2017-12-04] MEDS: ENOXAPARIN 30 MG/0.3 ML SYG SC (09:35)
[2017-12-04] MEDS: FAMOTIDINE 20 MG TAB GTB (20:47)
[2017-12-05] MEDS: ACETAMINOPHEN 325 MG TAB PO (03:49)
[2017-12-05] MEDS: ALBUTEROL/IPRATROPIUM (NEB) 3 ML AMP HHN ×3 (08:14→20:35)
[2017-12-05] MEDS: POLYETHYLENE GLYCOL 17 GM PACKET GTB (09:03)
[2017-12-05] MEDS: GABAPENTIN 100 MG CAP PO ×3 (09:03→21:11)
[2017-12-05] MEDS: DOCUSATE SODIUM 10 MG/ML (10ML CUP) GTB ×2 (09:03→21:12)
[2017-12-05] MEDS: HYDROCODONE/APAP (5/325) TAB PO ×2 (09:03→18:32)
[2017-12-05] MEDS: ENOXAPARIN 40 MG/0.4 ML SYG SC (09:11)
[2017-12-05] MEDS: BUDESONIDE (NEB) 0.5MG/2ML AMP HHN ×2 (09:36→20:35)
[2017-12-05] MEDS: FAMOTIDINE 20 MG TAB GTB (21:12)
[2017-12-05] MEDS: LACTOBACILLUS RHAMNOSUS CAP PEG (21:12)
[2017-12-06] MEDS: ALBUTEROL/IPRATROPIUM (NEB) 3 ML AMP HHN ×2 (01:24→08:03)
[2017-12-06] MEDS: HYDROCODONE/APAP (5/325) TAB PO ×2 (01:50→09:10)
[2017-12-06] MEDS: LORAZEPAM 0.5 MG TAB PO ×2 (03:19→13:23)
[2017-12-06] MEDS: GABAPENTIN 100 MG CAP PO ×2 (09:06→12:41)
[2017-12-06] MEDS: POLYETHYLENE GLYCOL 17 GM PACKET GTB (09:06)
[2017-12-06] MEDS: DOCUSATE SODIUM 10 MG/ML (10ML CUP) GTB (09:06)
[2017-12-06] MEDS: LACTOBACILLUS RHAMNOSUS CAP PEG (09:06)
[2017-12-06] MEDS: ENOXAPARIN 40 MG/0.4 ML SYG SC (09:08)
[2017-12-06 09:28] LABS: ADD MAN DIFF? NO
[2017-12-06 09:37] LABS: BASOPHILS % 0.2 % (0.0-2.0); EOSINOPHILS # 0.1 10^3/ul (0.0-0.5); EOSINOPHILS % 2.4 % (0.0-7.0); HEMATOCRIT 33.7 % (42.0-52.0); HEMOGLOBIN 10.8 g/dl (14.0-18.0); LYMPHOCYTES # 2.1 10^3/ul (0.8-2.9); LYMPHOCYTES % 40.8 % (15.0-51.0); MEAN CORPUSCULAR HEMOGLOBIN 27.1 pg (29.0-33.0); MEAN CORPUSCULAR VOLUME 84.5 fl (82.0-101.0); MEAN PLATELET VOLUME 10.3 fl (7.4-10.4); MONOCYTE # 0.6 10^3/ul (0.3-0.9); MONOCYTES % 10.8 % (0.0-11.0); NEUTROPHIL # 2.3 10^3/ul (1.6-7.5); NEUTROPHILS % 45.4 % (39.0-77.0); PLATELET COUNT 266 10^3/UL (140-415); RED BLOOD COUNT 3.99 10^6/ul (4.70-6.10); RED CELL DISTRIBUTION WIDTH 16.5 % (11.5-14.5)
[2017-12-06 09:37] LABS: WHITE BLOOD COUNT 5.1 10^3/ul (4.8-10.8)
[2017-12-06] MEDS: BUDESONIDE (NEB) 0.5MG/2ML AMP HHN (09:44)
[2017-12-06 09:47] LABS: INR 0.93; PROTIME 12.5 Sec (11.9-14.9)
[2017-12-06 10:05] LABS: LIPASE 79 U/L (23-300)
[2017-12-06 10:11] LABS: TROPONIN-I < 0.010 ng/ml (0.000-0.120)
[2017-12-06 10:43] LABS: PHOSPHORUS 4.4 mg/dl (2.5-4.9)
[2017-12-06 10:43] LABS: MAGNESIUM 2.3 mg/dl (1.7-2.5)
[2017-12-06 10:44] LABS: ALANINE AMINOTRANSFERASE 22 IU/L (13-69); ALBUMIN/GLOBULIN RATIO 0.85; ALKALINE PHOSPHATASE 72 IU/L (42-121); ANION GAP 13 (8-16); ASPARTATE AMINO TRANSFERASE 23 IU/L (15-46); BILIRUBIN,INDIRECT 0.2 mg/dl (0-1.1); BILIRUBIN,TOTAL 0.2 mg/dl (0.2-1.3); BLOOD UREA NITROGEN 22 mg/dl (7-20); CALCIUM 9.5 mg/dl (8.4-10.2); CARBON DIOXIDE 30 mmol/L (21-31); CHLORIDE 100 mmol/L (97-110); CREATININE 0.59 mg/dl (0.61-1.24); GLUCOSE 134 mg/dl (70-220); POTASSIUM 4.5 mmol/L (3.5-5.1); SODIUM 138 mmol/L (135-144); TOTAL PROTEIN 6.5 g/dl (6.1-8.1)
== END 2017-12-06 13:36 | DRG 871 ==
LOC: E/R 16:22 → TEL 22:43
DX: A41.9 Sepsis, unspecified organism (principal); J18.9 Pneumonia, unspecified organism; J96.21 Acute and chronic respiratory failure with hypoxia; G82.50 Quadriplegia, unspecified; N39.0 Urinary tract infection, site not specified; K59.2 Neurogenic bowel, not elsewhere classified; E87.1 Hypo-osmolality and hyponatremia; D64.9 Anemia, unspecified; E78.5 Hyperlipidemia, unspecified; G89.29 Other chronic pain; I10 Essential (primary) hypertension; J44.9 Chronic obstructive pulmonary disease, unspecified; K59.00 Constipation, unspecified; M62.50 Muscle wasting and atrophy, not elsewhere classified, unspecified site; N31.9 Neuromuscular dysfunction of bladder, unspecified; R13.10 Dysphagia, unspecified; R62.7 Adult failure to thrive; Z22.322 Carrier or suspected carrier of Methicillin resistant Staphylococcus aureus; Z93.0 Tracheostomy status; Z93.1 Gastrostomy status; Z87.891 Personal history of nicotine dependence
CPT/HCPCS: 36415; 71045; 74018; 74176; 80048; 80053; 80061; 80202; 81001; 81003; 82533; 83036; 83605; 83690; 83735; 84100; 84443; 84484; 85025; 85610; 85730; 87040; 87070; 87081; 87086; 93005; 94640; 94664; 96374; 96375; 99291-25